=== PATIENT | female | born 1985 | race Hispanic/Latino ===

== ENCOUNTER 2017-06-21 10:57 | Emergency (ER) | payer SELFPAY ==
--- NOTE | 2017-06-21 12:57 | Emergency Department Report ---
Chief Complaint: Abdominal Pain Stated Complaint: ETOH PROBLEMS Time Seen by Provider: 06/21/17 12:45 - HPI History of Present Illness: Patient here reports that she needs help at [facility]. Patient says she has been drinking a lot and drank half a liter of all call this morning. She says she's been drinking for almost a year and her sister and drinking has increased. Patient says that she was recently diagnosed with hepatitis C because she had a nervous breakdown and they did lab work on her and found that she had hepatitis and she drinks a liter of vodka daily plus she drinks beer sometimes with the vodka. Patient with history of bipolar disorder and hepatitis C. She takes multiple medications but she has a pharynx that she is out. She says she does not have a primary care physician and she feels like she needs to be placed somewhere to get help for all call abuse. Patient also have abdominal and flank pain that is 8 out of 10 and feels like it is stabbing. She says she was released from the treatment center and was there for 2 weeks but states that she started drinking again. She also said that she had nausea vomiting and diarrhea since last night. Denies any fever or chills. Denies any urinary burning frequency or urgency - ROS Review of Systems: All systems are negative unless stated in HPI above - Exam Vital Signs: Vital Signs 06/21/17 12:09 Temperature 98.3 F Pulse Rate 95 H Respiratory 18 Rate Blood Pressure 138/91 O2 Sat by Pulse 95 Oximetry Physical Exam: Gen.: This is a 32-year-old female that appears sick. She is nontoxic in appearance Abdomen: Tender to palpate to bilateral upper quadrant with positive guarding. Normal bowel sounds in all quadrants of abdomen is soft. Lungs: Scattered inspiratory wheezes in so upper lung barrera. Pulse ox is 95% on room air and her respirations 18. MSE screening note: Focused history and physical exam performed. Due to findings the following was ordered:MDM ED Disposition for MSE Condition: Stable Instructions: Abdominal Pain (ED) Referrals: PRIMARY CARE, [Primary Care Provider] - 3-5 Days
[2017-06-21 13:51] LABS: Urine Drugs of Abuse Note Disclamer
[2017-06-21 14:27] LABS: Bilirubin,Urine NEG (Negative); Blood,Urine MOD (Negative); Ketones,Urine NEG (Negative); Leukocyte Esterase,Urine SM (Negative); Mucus,Urine FEW /HPF; Nitrite,Urine NEG (Negative); Protein,Urine <15 mg/dL mg/dL (Negative); Urobilinogen,Urine < 2.0 mg/dL (<2.0)
[2017-06-21 14:34] LABS: Basophils % (Auto) 0.8 % (0.0-1.8); Eosinophils % (Auto) 0.1 % (0.0-4.3); Hematocrit 40.6 % (30.3-42.9); Hemoglobin 13.3 gm/dl (10.1-14.3); Mean Corpuscular HGB Conc 33 % (30-34); Mean Corpuscular Hemoglobin 32 pg (28-32); Mean Corpuscular Volume 98 fl (79-97); Platelet Count 472 K/mm3 (140-440); Red Blood Count 4.15 M/mm3 (3.65-5.03); Red Cell Distribution Width 12.5 % (13.2-15.2); White Blood Count 13.2 K/mm3 (4.5-11.0)
[2017-06-21 14:42] LABS: INR 0.96 (0.87-1.13); Partial Thromboplastin Time 30.8 Sec. (24.2-36.6)
[2017-06-21 14:44] LABS: Alanine Aminotransferase 38 units/L (7-56); Albumin 4.1 g/dL (3.9-5); Alkaline Phosphatase 42 units/L (35-129); Anion Gap 20 mmol/L; Blood Urea Nitrogen 9 mg/dL (7-17); Calcium 9.3 mg/dL (8.4-10.2); Carbon Dioxide 25 mmol/L (22-30); Chloride 97.6 mmol/L (98-107); Glucose 94 mg/dL (65-100); Lipase 26 units/L (13-60); Potassium 4.2 mmol/L (3.6-5.0); Sodium 138 mmol/L (137-145); Total Protein 8.2 g/dL (6.3-8.2)
--- NOTE | 2017-06-21 15:04 | Ultrasound Report ---
Complete abdominal ultrasound: Images of the liver and spleen are unremarkable. The pancreas is not well-visualized but no gross abnormality identified. The gallbladder is patulous but otherwise unremarkable. The mid CBD has a diameter of 4.8 mm however the distal CBD may be as large as 7 mm. No intraluminal filling defect identified. The right renal length is 11.4 cm and the left renal length is 11.6 cm. Both are echogenically unremarkable. The transverse diameter of the proximal abdominal aorta is 1.6 cm. Impression: Slightly prominent distal CBD of questionable significance.
[2017-06-21] MEDS ORDERED: VALIUM IV ONE (15:58)
[2017-06-21] MEDS ORDERED: NACL 0.9% 1000 ML 1,000 ML IV ONE (15:58)
[2017-06-21] MEDS ORDERED: ZOFRAN IV ONE (15:59)
[2017-06-21] MEDS ORDERED: MORPHINE IV ONE (15:59)
--- NOTE | 2017-06-21 16:00 | Emergency Department Report ---
HPI - General Chief Complaint: Abdominal Pain Time Seen by Provider: 06/21/17 12:57 - HPI HPI: Patient is a 32-year-old female presents for evaluation of abdominal pain. The patient reports abdominal pain since this morning, greater than 6 hours prior to my evaluation, constant since onset, 10/10 in severity, upper abdominal location, and is exacerbated with vomiting or the drinking of alcohol. The patient also reports nausea, vomiting, and diarrhea. The patient denies fever, chills, night sweats, blood in the stool, dark tarry stool, dysuria, hematuria, flank pain, genital discharge, inability to pass flatus. ED Past Medical Hx - Past Medical History Previous Medical History?: Yes Hx Psychiatric Treatment: Yes (bipolar) Additional medical history: Hep-c - Surgical History Past Surgical History?: Yes Additional Surgical History: - Social History Smoking Status: Never Smoker Substance Use Type: Alcohol - Medications Home Medications: Home Medications Medication Instructions Recorded Confirmed Last Taken Type Ondansetron [Zofran TAB] 4 mg PO Q8HR PRN #15 tablet 06/21/17 Unknown Rx traMADol [Ultram 50 MG tab] 50 mg PO Q6HR PRN #15 tablet 06/21/17 Unknown Rx ED Review of Systems ROS: Stated complaint: ETOH PROBLEMS Other details as noted in HPI Constitutional: denies: fever ENT: denies: throat or neck pain Respiratory: denies: cough, shortness of breath Cardiovascular: denies: chest pain Endocrine: denies unexplained weight loss or gain Gastrointestinal: reports abdominal pain, nausea Genitourinary: denies: dysuria Musculoskeletal: denies: leg swelling Skin: denies: rash Neurological: denies: headache Hematological/Lymphatic: denies: easy bleeding or easy bruising Psych: denies sadness or hopelessness Physical Exam - Physical Exam Vital Signs: Vital Signs 06/21/17 06/21/17 12:09 14:28 Temperature 98.3 F 98.8 F Pulse Rate 95 H 83 Respiratory 18 17 Rate Blood Pressure 138/91 Blood Pressure 129/84 [Left] O2 Sat by Pulse 95 96 Oximetry Physical Exam: General: well-nourished, well-developed, no acute distress Head: Normocephalic, atraumatic Eyes: normal sclera ENT: Mucous membranes are pale and dry Neck: trachea midline, neck supple, No neck stiffness, no cervical adenopathy Respiratory: Breath sounds equal bilaterally, no wheezing, rales, or rhonchi Cardio: S1 and S2 present, no murmurs, rubs, gallops, capillary refill is delayed Abdomen: Normoactive bowel sounds, soft abdomen, no rigidity, no guarding or rebound tenderness Musc: No pitting edema Skin: No rash Neuro: no facial drooping, normal speech Psych: Normal affect ED Course Vital Signs 06/21/17 06/21/17 12:09 14:28 Temperature 98.3 F 98.8 F Pulse Rate 95 H 83 Respiratory 18 17 Rate Blood Pressure 138/91 Blood Pressure 129/84 [Left] O2 Sat by Pulse 95 96 Oximetry ED Medical Decision Making - Lab Data Result diagrams: 06/21/17 13:26 06/21/17 13:26 - Medical Decision Making The patient was seen and examined by myself. The patient is placed on a monitoring tech and continuous pulse ox. On initial evaluation, the patient was found to be in no distress. Evaluation orders are placed. IV access is established and the patient is given 1 L normal saline fluid bolus and Zofran for nausea, and IV analgesic for pain. Lab results were non-concerning including WBC, hemoglobin, hematocrit, electrolytes, renal function, LFTs, lipase, and urinalysis. The patient was reevaluated and reported that their symptoms were markedly improved. The patient is stable for discharge with outpatient follow-up. The patient is given follow-up and return instructions. The patient expressed understanding and agreed with the plan. The patient is discharged in stable condition. Critical care attestation.: If time is entered above; I have spent that time in minutes in the direct care of this critically ill patient, excluding procedure time. ED Disposition Clinical Impression: Dehydration, LUQ abdominal pain, Acute abdominal pain in right upper quadrant, Nausea and vomiting in adult Disposition: DC-01 TO HOME OR SELFCARE Is pt being admited?: No Does the pt Need Aspirin: No Condition: Stable Instructions: Gastroenteritis (ED), Abdominal Pain (ED) Prescriptions: Ondansetron [Zofran TAB] 4 mg PO Q8HR PRN #15 tablet PRN Reason: Nausea traMADol [Ultram 50 MG tab] 50 mg PO Q6HR PRN #15 tablet PRN Reason: Pain Referrals: PRIMARY CARE,MD [Primary Care Provider] - 3-5 Days Time of Disposition: 15:59
[2017-06-21 20:13] VITALS: BP 129/93
== END 2017-06-21 20:28 | disposition home or self-care (01) ==
LOC: ED 10:57
DX: E86.0 Dehydration (principal); R10.10 Upper abdominal pain, unspecified; R11.2 Nausea with vomiting, unspecified
CPT/HCPCS: 36415; 76700; 80053; 80074; 80307; 81001; 83690; 83735; 84703; 85025; 85610; 85730; 96361; 96374; 96375; 99284; G0480; J2270; J2405; J3360; J7030; 80320

== ENCOUNTER 2017-06-25 20:56 | Emergency (ER) | payer OTHER ==
[2017-06-25 21:37] LABS: Hematocrit 37.4 % (30.3-42.9); Hemoglobin 12.7 gm/dl (10.1-14.3); Mean Corpuscular HGB Conc 34 % (30-34); Mean Corpuscular Hemoglobin 33 pg (28-32); Mean Corpuscular Volume 97 fl (79-97); Platelet Count 372 K/mm3 (140-440); Red Blood Count 3.87 M/mm3 (3.65-5.03); Red Cell Distribution Width 12.7 % (13.2-15.2); White Blood Count 9.3 K/mm3 (4.5-11.0)
[2017-06-25 21:55] LABS: Anion Gap 19 mmol/L; BUN/Creatinine Ratio 13.33; Blood Urea Nitrogen 8 mg/dL (7-17); Calcium 8.8 mg/dL (8.4-10.2); Carbon Dioxide 26 mmol/L (22-30); Chloride 96.1 mmol/L (98-107); Glucose 97 mg/dL (65-100); Potassium 4.3 mmol/L (3.6-5.0); Sodium 137 mmol/L (137-145)
[2017-06-25] MEDS ORDERED: NACL 0.9% 1000 ML 1,000 ML IV ONE (22:42)
--- NOTE | 2017-06-25 22:42 | Emergency Department Report ---
ED Psych HPI - General Chief Complaint: Alcohol Stated Complaint: MH Time Seen by Provider: 06/25/17 22:22 Source: patient Mode of arrival: Ambulatory - History of Present Illness Initial Comments: 32 years old female came to the ER accompanied his her . Patient stated that she was doing well until 3 months ago when her brother in low shot and killed her sister since then she was very depressed since been drinking alcohol every single day she tried to kill herself one time by cutting her throat she did not go to the hospital at that time she said she did stitches by herself at home. Patient also tried to cut her left wrist. She admitted suicidal ideation and she stated that she will act on it. MD Complaint: suicidal ideation, feels depressed -: Gradual Associated Psychiatric Symptoms: depression, suicidal ideation History of same: Yes Quality: constant Context: recent alcohol abuse Associated Symptoms: denies other symptoms Treatments Prior to Arrival: none If Self Harm: admits thoughts of, has plan, has acted on plan, self-inflicted trauma - Related Data Home Medications Medication Instructions Recorded Confirmed Last Taken FLUoxetine [PROzac] 10 mg PO QDAY 06/26/17 06/26/17 3 Weeks Ago busPIRone [Buspar] 5 mg PO BID 06/26/17 06/26/17 3 Weeks Ago hydrOXYzine PAMOATE [Vistaril] 50 mg PO Q6HR PRN 06/26/17 06/26/17 3 Weeks Ago risperiDONE [RisperDAL] 1 mg PO BID 06/26/17 06/26/17 3 Weeks Ago Allergies Allergy/AdvReac Type Severity Reaction Status Date / Time amoxicillin AdvReac Hives Verified 06/25/17 21:09 Penicillins AdvReac Hives Verified 06/25/17 21:09 ED Review of Systems ROS: Stated complaint: MH Other details as noted in HPI Comment: All other systems reviewed and negative Constitutional: denies: chills, fever ENT: denies: throat pain Respiratory: denies: cough, shortness of breath Cardiovascular: denies: chest pain, palpitations, edema Gastrointestinal: denies: abdominal pain, nausea, vomiting, diarrhea Genitourinary: denies: urgency, dysuria, frequency Skin: denies: rash Neurological: denies: headache, weakness, numbness Psychiatric: depression, suicidal thoughts. denies: auditory hallucinations, visual hallucinations, homicidal thoughts ED Past Medical Hx - Past Medical History Hx Psychiatric Treatment: Yes (bipolar) Additional medical history: Hep-c - Surgical History Additional Surgical History: - Social History Smoking Status: Current Every Day Smoker Substance Use Type: None, Alcohol - Medications Home Medications: Home Medications Medication Instructions Recorded Confirmed Last Taken Type FLUoxetine [PROzac] 10 mg PO QDAY 06/26/17 06/26/17 3 Weeks Ago History busPIRone [Buspar] 5 mg PO BID 06/26/17 06/26/17 3 Weeks Ago History hydrOXYzine PAMOATE [Vistaril] 50 mg PO Q6HR PRN 06/26/17 06/26/17 3 Weeks Ago History risperiDONE [RisperDAL] 1 mg PO BID 06/26/17 06/26/17 3 Weeks Ago History ED Physical Exam - General Limitations: No Limitations General appearance: alert, in no apparent distress - Head Head exam: Present: atraumatic, normocephalic - Eye Eye exam: Present: normal appearance - ENT ENT exam: Present: normal exam, normal orophraynx, mucous membranes moist - Neck Neck exam: Present: other (3 cm old laceration to the right side of the neck). Absent: tenderness, meningismus, full ROM, lymphadenopathy, thyromegaly - Respiratory Respiratory exam: Present: normal lung sounds bilaterally. Absent: respiratory distress, wheezes, rales, rhonchi - Cardiovascular Cardiovascular Exam: Present: regular rate, normal rhythm, normal heart sounds - GI/Abdominal GI/Abdominal exam: Present: soft. Absent: distended, tenderness, guarding, rebound, mass, bruit, pulsatile mass - Extremities Exam Extremities exam: Present: normal inspection - Back Exam Back exam: Present: normal inspection. Absent: CVA tenderness (R), CVA tenderness (L) - Neurological Exam Neurological exam: Present: alert, oriented X3, CN II-XII intact - Psychiatric Psychiatric exam: Present: depressed, suicidal ideation. Absent: agitated, anxious, flat affect, manic, homicidal ideation - Skin Skin exam: Present: warm, intact, normal color ED Course Vital Signs 06/25/17 06/25/17 06/25/17 21:09 22:04 22:09 Temperature 98.6 F 98.3 F Pulse Rate 102 H 94 H 95 H Respiratory 20 13 24 Rate Blood Pressure 127/81 Blood Pressure 109/77 [Left] O2 Sat by Pulse 97 97 98 Oximetry 06/25/17 06/25/17 06/25/17 22:15 22:31 22:53 Temperature Pulse Rate 84 102 H Respiratory 16 13 Rate Blood Pressure 109/77 109/77 106/68 Blood Pressure [Left] O2 Sat by Pulse 98 98 95 Oximetry ED Medical Decision Making - Lab Data Result diagrams: 06/25/17 21:24 06/25/17 21:24 Critical care attestation.: If time is entered above; I have spent that time in minutes in the direct care of this critically ill patient, excluding procedure time. ED Disposition Clinical Impression: Suicidal ideation, Alcohol abuse Disposition: DC/TX-65 PSY HOSP/PSY UNIT Is pt being admited?: No Condition: Stable Referrals: PRIMARY CARE [Primary Care Provider] - 3-5 Days
[2017-06-25 22:49] LABS: Urine Drugs of Abuse Note Disclamer
[2017-06-25 22:58] LABS: Bilirubin,Urine NEG (Negative); Blood,Urine NEG (Negative); Ketones,Urine NEG (Negative); Leukocyte Esterase,Urine NEG (Negative); Nitrite,Urine NEG (Negative); Protein,Urine <15 mg/dL mg/dL (Negative); Urobilinogen,Urine < 2.0 mg/dL (<2.0); WBC,Urine < 1.0 /HPF (0.0-6.0)
[2017-06-26] MEDS ORDERED: TYLENOL PO ONE (00:50)
[2017-06-26] MEDS ORDERED: TYLENOL ONE (00:53)
[2017-06-26] MEDS ORDERED: MOTRIN PO ONE (09:40)
[2017-06-26] MEDS ORDERED: MOTRIN ONE (09:44)
[2017-06-26] MEDS: HALDOL IM PRN (13:36)
[2017-06-27] MEDS ORDERED: ATIVAN IV PRN ×2 (07:49)
[2017-06-27] MEDS ORDERED: LIBRIUM PO PRN (07:49)
[2017-06-27] MEDS: HALDOL IM PRN (11:54)
--- NOTE | 2017-06-27 14:14 | Consultation ---
History of Present Illness - Reason for Consult Consult date: 06/27/17 Reason for consult: Mental Health Evaluation Requesting physician: SOCORRO MCKENNA - Chief Complaint Chief complaint: "I am in need of help" - History of Present Psychiatric Illness 32 years old female came to the ER accompanied by her presenting to [facility] for depression and SI's. Today patient is calm and cooperative, but anxious during the assessment. She stated that she have been having a hard time with the of her sister who was murdered by her . The patient stated that she has a hx of bipolar/depression and her depression has been exacerbated by of her sister. She stated that she is suicidal with a plan to cut herself or overdose. She stated that she have cut her neck and wrist in the past. She stated drinking vodka excessively daily. She stated that she has always drink alcohol, but now her consumption has increased. She stated that she has attempted detox, but would relapse during the program. She denies HI's, and AVH's. She denies a poor appetite and sleep disturbance. She denies recreational drug use. She stated that she take Risperdal, Buspar, Prozac, and Vistaril. Medications and Allergies Allergies Allergy/AdvReac Type Severity Reaction Status Date / Time amoxicillin Allergy Hives Verified 06/27/17 16:17 Penicillins Allergy Hives Verified 06/27/17 16:17 Home Medications Medication Instructions Recorded Confirmed Last Taken Type FLUoxetine [PROzac] 10 mg PO QDAY 06/26/17 06/26/17 3 Weeks Ago History busPIRone [Buspar] 5 mg PO BID 06/26/17 06/26/17 3 Weeks Ago History hydrOXYzine PAMOATE [Vistaril] 50 mg PO Q6HR PRN 06/26/17 06/26/17 3 Weeks Ago History risperiDONE [RisperDAL] 1 mg PO BID 06/26/17 06/26/17 3 Weeks Ago History Active Meds: Active Medications Chlordiazepoxide HCl (Librium) 50 mg PO Q1HR PRN PRN Reason: CIWA-Ar 8-15 Haloperidol Lactate (Haldol) 5 mg IM Q8H PRN PRN Reason: Agitation Last Admin: 06/27/17 11:54 Dose: 5 mg Lorazepam (Ativan) 4 mg IV Q1HR PRN PRN Reason: CIWA-Ar 16-25 Lorazepam (Ativan) 4 mg IV Q15MIN PRN PRN Reason: CIWA-Ar >25 Past psychiatric history - Past Medical History Past Medical History: other (Hep C) Past Surgical History: - past Psychiatric treatment and history Psych: Bipolar, Depression psychiatric treatment history: Multiple inpatient psy settings per the patient. Denies a fam psy hx. - Social History Social history: lives with family Mental Status Exam - Vital signs Last Vital Signs Temp 98.0 F 06/27/17 09:22 Pulse 74 06/27/17 09:22 Resp 20 06/27/17 09:22 BP 111/80 06/27/17 09:22 Pulse Ox 97 06/27/17 09:22 - Exam Narrative exam: ROS: (+) anxious MSE: Appearance: calm, cooperative Behavior: regular eye contact Speech: regular rate and tone Mood: "I'm down" Affect: congruent to mood Thought Process: circumstantial Thought Content: denies SI/HI's and AVH's Motor Activity: ambulatory Cognition: A/O x3 Insight: variable Judgment: variable Results Result Diagrams: 06/25/17 21:24 06/25/17 21:24 All other labs normal. Assessment and Plan Assessment and plan: Impression: Historical Dx: Bipolar/Depression/Anxiety DO. Unspecified Mood DO. Alcohol Use DO. Today patient is calm and cooperative during the assessment. Mild to Moderate tremors noted. Alcohol serum 0.11. Patient is suicidal. DDx: Schizoaffective DO, Alcohol Induced Mood DO Recommendation/Plan: Continue 1013. Start Buspar 5 mg PO BID for anxiety, Prozac 20 mg PO Daily for depression, and Risperdal 1 mg PO HS for mood. Discussed possible suicidality/medication induced logan with patient reference Prozac.
[2017-06-27] MEDS: BUSPAR PO SCH ×2 (17:37→23:16)
[2017-06-27] MEDS: PROzac PO SCH (17:37)
[2017-06-27] MEDS: RisperDAL PO SCH (22:07)
--- NOTE | 2017-06-28 09:14 | Progress Note ---
Subjective - Reason for Consult Consult date: 06/28/17 Reason for consult: Psychiatry Follow-up - Chief Complaint Chief complaint: "I am ready to go" 32 years old female came to the ER accompanied by her presenting to [facility] for depression and SI's. Today patient is anxious about wanting to be discharged. She stated that she isn't suicidal, but want help for her alcohol addiction. She is willing to attend outpatient rehab services for alcoholism. She stated that she will need a referral also for outpatient psy services. She denies SI/HI's and AVH's. She denies a poor appetite and sleep disturbances. She denies any side effects of her medications. Mental Status Exam - Vital signs Last Vital Signs Temp 98 F 06/27/17 22:09 Pulse 83 06/27/17 22:09 Resp 18 06/27/17 22:12 BP 108/71 06/27/17 22:09 Pulse Ox 97 06/27/17 09:22 - Exam Narrative exam: MSE: Appearance: calm, cooperative, anxious Behavior: regular eye contact Speech: regular rate and tone Mood: "well" Affect: congruent to mood Thought Process: linear Thought Content: denies SI/HI's and AVH's Motor Activity: ambulatory Cognition: A/O x3 Insight: variable Judgment: variable Assessment and Plan Impression: Historical Dx: Bipolar/Depression/Anxiety DO. Unspecified Mood DO. Alcohol Use DO. Today patient is calm and cooperative during the assessment. Mild tremors noted. Alcohol serum 0.11 on admission. Recommendation/Plan: Evaluate 1013 in 24 hours to determine dispo. Continue CIWA. Continue Buspar 5 mg PO BID for anxiety, Prozac 20 mg PO Daily for depression, and Risperdal 1 mg PO HS for mood. Start Vistaril 25 mg PO Q6hrs PRN for acute anxiety. Discussed possible suicidality/medication induced logan with patient reference Prozac.
[2017-06-28] MEDS: PROzac PO SCH (11:05)
[2017-06-28] MEDS: BUSPAR PO SCH ×2 (11:05→22:11)
[2017-06-28] MEDS: RisperDAL PO SCH (22:11)
[2017-06-29] MEDS: PROzac PO SCH (10:09)
[2017-06-29] MEDS: BUSPAR PO SCH ×2 (10:09→23:09)
[2017-06-29] MEDS: VISTARIL PO PRN ×2 (12:56→20:49)
[2017-06-29] MEDS: TYLENOL PO ONE (15:02)
[2017-06-29] MEDS: RisperDAL PO SCH (23:09)
[2017-06-30] MEDS ORDERED: TYLENOL ONE (05:37)
[2017-06-30] MEDS: TYLENOL PO ONE (05:39)
[2017-06-30] MEDS: PROzac PO SCH (10:46)
[2017-06-30] MEDS: BUSPAR PO SCH (10:46)
--- NOTE | 2017-06-30 10:59 | Event Note ---
Date: 06/30/17 Elevated Herminia Mckeon3 was recinded by psychiatry I evaluated the patient she is having no suicidal or oral or homicidal ideation. Patient is clinically sober and is stressing goal oriented behavior. I will send patient with follow- up for outpatient detox at [facility] department. I will also send patient home with prescriptions for Prozac and risperidone per psychiatry's recommendations.
[2017-06-30 12:22] VITALS: BP 103/68
--- NOTE | 2017-06-30 12:39 | Progress Note ---
Subjective - Reason for Consult Consult date: 06/30/17 Reason for consult: Psychiatry Follow-up - Chief Complaint Chief complaint: "Can I leave today" 32 years old female came to the ER accompanied by her presenting to [facility] for depression and SI's. Today patient is calm and cooperative during the assessment. She stated that she will follow-up with [facility] for outpatient psy/rehab services. She denies SI/HI's, AVH's, and depression. She denies any side effects of her medications. Mental Status Exam - Vital signs Last Vital Signs Temp 97.8 F 06/30/17 10:00 Pulse 67 06/30/17 10:00 Resp 18 06/30/17 10:00 BP 103/68 06/30/17 10:00 Pulse Ox 100 06/30/17 10:00 - Exam Narrative exam: MSE: Appearance: calm, cooperative Behavior: regular eye contact Speech: regular rate and tone Mood: "well" Affect: congruent to mood Thought Process: linear Thought Content: denies SI/HI's and AVH's Motor Activity: ambulatory Cognition: A/O x3 Insight: fair Judgment: fair Assessment and Plan Impression: Historical Dx: Bipolar/Depression/Anxiety DO. Unspecified Mood DO. Alcohol Use DO. Today patient is calm and cooperative during the assessment. No acute withdrawals noted on assessment. Patient is no threat to self. Recommendation/Plan: Rescind 1013. Continue Buspar 5 mg PO BID for anxiety, Prozac 20 mg PO Daily for depression, and Risperdal 1 mg PO HS for mood. Discussed possible suicidality/medication induced logan with patient reference Prozac. Patient given outpatient psy services for [facility].
== END 2017-06-30 12:40 ==
LOC: EEVIPCON 20:56 → ED 20:56
DX: F31.9 Bipolar disorder, unspecified (principal); F17.210 Nicotine dependence, cigarettes, uncomplicated; Z88.1 Allergy status to other antibiotic agents; Z88.0 Allergy status to penicillin
CPT/HCPCS: 36415; 80048; 80307; 81001; 84703; 85025; 96360; 96372; 99285; G0480; J1630; J7030; 80320; Q0177

== ENCOUNTER 2017-09-19 15:49 | Emergency (ER) | payer SELFPAY ==
--- NOTE | 2017-09-19 18:08 | Emergency Department Report ---
ED ENT HPI - General Chief complaint: Dental/Oral Stated complaint: SPITTING UP BLOOD Time Seen by Provider: 09/19/17 17:29 Source: patient Mode of arrival: Ambulatory Limitations: No Limitations - History of Present Illness Initial comments: This is a 32-year-old female nontoxic, well nourished in appearance, no acute signs of distress presents to the ED with c/o of gingival pain, swelling, and intermittent bleeding. Patient stated this is a chronic thing for her. Patient denies follow-up with a dentist or primary care doctor. Denies any trauma to the region. Patient denies any fever, chills, nausea, vomiting, chest pain, shortness of breath, headache, stiff neck, blurred vision, facial swelling. patient states allergies to penicillin. Past medical history includes bipolar, hep C. MD complaint: other (gingival pain and swelling) -: year(s) Severity: mild Severity scale (0 -10): 8 Quality: aching Consistency: constant Improves with: none Worsens with: none Context- Dental: history of dental caries, poor dental care Associated Symptoms: gum swelling. denies: fever, cough, toothache, pain with swallowing, sore throat, tinnitus, hearing loss, discharge from ear, rhinorrhea - Related Data Home Medications Medication Instructions Recorded Confirmed Last Taken hydrOXYzine PAMOATE [Vistaril] 50 mg PO Q6HR PRN 06/26/17 06/26/17 3 Weeks Ago ~06/05/17 Previous Rx's Medication Instructions Recorded Last Taken Type FLUoxetine [PROzac] 20 mg PO QDAY #30 tablet 06/30/17 Unknown Rx busPIRone [Buspar] 5 mg PO BID #30 tablet 06/30/17 Unknown Rx risperiDONE [RisperDAL] 1 mg PO QHS #30 tablet 06/30/17 Unknown Rx Acetaminophen 500 mg PO Q6H #30 capsule 09/19/17 Unknown Rx Clindamycin [Clindamycin CAP] 300 mg PO Q8H 7 Days cap 09/19/17 Unknown Rx Allergies Allergy/AdvReac Type Severity Reaction Status Date / Time amoxicillin Allergy Hives Verified 06/27/17 16:17 Penicillins Allergy Hives Verified 06/27/17 16:17 ED Dental HPI - General Chief complaint: Dental/Oral Stated complaint: SPITTING UP BLOOD Time Seen by Provider: 09/19/17 17:29 Source: patient Mode of arrival: Ambulatory Limitations: No Limitations - Related Data Home Medications Medication Instructions Recorded Confirmed Last Taken hydrOXYzine PAMOATE [Vistaril] 50 mg PO Q6HR PRN 06/26/17 06/26/17 3 Weeks Ago ~06/05/17 Previous Rx's Medication Instructions Recorded Last Taken Type FLUoxetine [PROzac] 20 mg PO QDAY #30 tablet 06/30/17 Unknown Rx busPIRone [Buspar] 5 mg PO BID #30 tablet 06/30/17 Unknown Rx risperiDONE [RisperDAL] 1 mg PO QHS #30 tablet 06/30/17 Unknown Rx Acetaminophen 500 mg PO Q6H #30 capsule 09/19/17 Unknown Rx Clindamycin [Clindamycin CAP] 300 mg PO Q8H 7 Days cap 09/19/17 Unknown Rx Allergies Allergy/AdvReac Type Severity Reaction Status Date / Time amoxicillin Allergy Hives Verified 06/27/17 16:17 Penicillins Allergy Hives Verified 06/27/17 16:17 ED Review of Systems ROS: Stated complaint: SPITTING UP BLOOD Other details as noted in HPI Constitutional: denies: chills, fever Eyes: denies: eye pain, eye discharge, vision change ENT: throat pain. denies: ear pain Respiratory: denies: cough, shortness of breath, wheezing Cardiovascular: denies: chest pain, palpitations Endocrine: no symptoms reported Gastrointestinal: denies: abdominal pain, nausea, diarrhea Genitourinary: denies: urgency, dysuria, discharge Musculoskeletal: denies: back pain, joint swelling, arthralgia Skin: denies: rash, lesions Neurological: denies: headache, weakness, paresthesias Psychiatric: denies: anxiety, depression Hematological/Lymphatic: denies: easy bleeding, easy bruising ED Past Medical Hx - Past Medical History Previous Medical History?: Yes Hx Psychiatric Treatment: Yes (bipolar) Additional medical history: Hep-c - Surgical History Past Surgical History?: Yes Additional Surgical History: - Social History Smoking Status: Current Every Day Smoker Substance Use Type: None - Medications Home Medications: Home Medications Medication Instructions Recorded Confirmed Last Taken Type hydrOXYzine PAMOATE [Vistaril] 50 mg PO Q6HR PRN 06/26/17 06/26/17 3 Weeks Ago History ~06/05/17 FLUoxetine [PROzac] 20 mg PO QDAY #30 tablet 06/30/17 Unknown Rx busPIRone [Buspar] 5 mg PO BID #30 tablet 06/30/17 Unknown Rx risperiDONE [RisperDAL] 1 mg PO QHS #30 tablet 06/30/17 Unknown Rx Acetaminophen 500 mg PO Q6H #30 capsule 09/19/17 Unknown Rx Clindamycin [Clindamycin CAP] 300 mg PO Q8H 7 Days cap 09/19/17 Unknown Rx ED Physical Exam - General Limitations: No Limitations General appearance: alert, in no apparent distress - Head Head exam: Present: atraumatic, normocephalic, normal inspection - Eye Eye exam: Present: normal appearance, PERRL, EOMI. Absent: scleral icterus, conjunctival injection, nystagmus, periorbital swelling, periorbital tenderness Pupils: Present: normal accommodation - ENT ENT exam: Present: mucous membranes moist, TM's normal bilaterally, normal external ear exam - Expanded ENT Exam Expanded Ear exam: Present: normal external inspection Mouth exam: Present: normal external inspection, tongue normal. Absent: drooling, trismus, muffled voice, tongue elevation, laceration Teeth exam: Present: dental caries (multiple), fractured tooth # (multiple), dental tenderness # (multiple), gingival enlargement, other (No abscess or swelling noted) Throat exam: Positive: normal inspection. Negative: tonsillar erythema, tonsillomegaly, tonsillar exudate, R peritonsillar mass, L peritonsillar mass - Neck Neck exam: Present: normal inspection, full ROM. Absent: tenderness, meningismus, lymphadenopathy, thyromegaly - Respiratory Respiratory exam: Present: normal lung sounds bilaterally. Absent: respiratory distress, wheezes, rales, rhonchi, stridor, chest wall tenderness, accessory muscle use, decreased breath sounds, prolonged expiratory - Cardiovascular Cardiovascular Exam: Present: regular rate, normal rhythm, normal heart sounds. Absent: irregular rhythm, systolic murmur, diastolic murmur, rubs, gallop - GI/Abdominal GI/Abdominal exam: Present: soft, normal bowel sounds. Absent: distended, tenderness, guarding, rebound, rigid, diminished bowel sounds - Rectal Rectal exam: Present: deferred - Extremities Exam Extremities exam: Present: normal inspection, full ROM, normal capillary refill. Absent: tenderness, pedal edema, joint swelling, calf tenderness - Back Exam Back exam: Present: normal inspection, full ROM. Absent: tenderness, CVA tenderness (R), CVA tenderness (L), muscle spasm, paraspinal tenderness, vertebral tenderness, rash noted - Neurological Exam Neurological exam: Present: alert, oriented X3, CN II-XII intact, normal gait, reflexes normal - Psychiatric Psychiatric exam: Present: normal affect, normal mood - Skin Skin exam: Present: warm, dry, intact, normal color. Absent: rash ED Course Vital Signs 09/19/17 15:59 Temperature 98.4 F Pulse Rate 100 H Respiratory 16 Rate Blood Pressure 138/90 O2 Sat by Pulse 96 Oximetry - Reevaluation(s) Reevaluation #1: 09/19/17 18:09 Patient is speaking in full sentences with no signs of distress noted. Critical care attestation.: If time is entered above; I have spent that time in minutes in the direct care of this critically ill patient, excluding procedure time. ED Disposition Clinical Impression: Gingivitis, Dental caries Disposition: DC- TO HOME OR SELFCARE Is pt being admited?: No Does the pt Need Aspirin: No Condition: Stable Instructions: Gingivitis (ED), Clindamycin (By mouth), Dental Caries (ED) Additional Instructions: Follow-up with a dentist in 3-5 days or if symptoms worsen and continue return to emergency room as soon as possible. Prescriptions: Acetaminophen 500 mg PO Q6H #30 capsule Clindamycin [Clindamycin CAP] 300 mg PO Q8H 7 Days cap Referrals: MACK ESPARZA MD [Primary Care Provider] - 3-5 Days COMFORT ARMENTA MD [Staff Physician] - 3-5 Days [facility] [Outside] - 3-5 Days Forms: Work/School Release Form(ED)
[2017-09-19 18:09] VITALS: BP 124/80
== END 2017-09-19 18:25 | disposition home or self-care (01) ==
LOC: ED 15:49
DX: K02.9 Dental caries, unspecified (principal); K05.10 Chronic gingivitis, plaque induced; F31.9 Bipolar disorder, unspecified; F17.200 Nicotine dependence, unspecified, uncomplicated; Z88.1 Allergy status to other antibiotic agents; Z88.0 Allergy status to penicillin
CPT/HCPCS: 99281